=== PATIENT | female | born 1985 | race African-American/Black ===

== ENCOUNTER 2016-06-24 09:22 | Emergency (ER) | payer SELFPAY ==
[~2016-06-24] VITALS: Ht 172.7 cm; Wt 56.7 kg
--- NOTE | 2016-06-24 09:37 | NUR ---
PT TO ED ROOM 04. PALPITATIONS, CHEST PRESSURE, ANXIETY. A/A/O. AMBULATORY W/ STEADY GAIT. SIDE RAILS UP. HOB ELEVATED. CONNECTED TO MONITOR. VS WNL. NAD. AWAITING FOR ED PROVIDER RAMBO.
[2016-06-24] MEDS ORDERED: LORAZEPAM 1 MG TABLET ONE (10:02)
[2016-06-24] MEDS: LORAZEPAM 1 MG TABLET PO ONE (10:09)
[2016-06-24 10:10] VITALS: BP 117/72
--- NOTE | 2016-06-24 10:10 | NUR ---
Patient discharged to home in stable condition. Written and verbal after care instructions given. Patient verbalizes understanding of instruction.
== END 2016-06-24 10:11 | disposition home or self-care (01) ==
LOC: ER 09:26
DX: F41.9 Anxiety disorder, unspecified (principal)
CPT/HCPCS: A4606; Z7610